=== PATIENT | female | born 2000 | race Two or more races ===

== ENCOUNTER 2025-05-07 02:07 | Emergency (ER) | payer BC ==
[~2025-05-07] VITALS: Ht 162.6 cm; Wt 54.4 kg
[2025-05-07] MEDS ORDERED: FAMOTIDINE/PF 20 MG/2 ML VIAL IV PUSH STA (02:34)
[2025-05-07] MEDS ORDERED: PROMETHAZINE HCL 50 MG/ML AMPUL IM STA (02:34)
[2025-05-07] MEDS ORDERED: FAMOTIDINE/PF 20 MG/2 ML VIAL ONE (02:37)
[2025-05-07] MEDS ORDERED: PROMETHAZINE HCL 50 MG/ML AMPUL IM ONE (02:37)
[2025-05-07] MEDS ORDERED: DEXTROSE 5 % AND 0.9 % NACL 1,000 ML IV ONE (02:45)
[2025-05-07] MEDS ORDERED: ZOFRAN8 MG PO (05:54)
[2025-05-07] MEDS ORDERED: PEPCID40 MG PO (05:54)
== END 2025-05-07 06:03 ==
LOC: ER 02:39
DX: F10.929 Alcohol use, unspecified with intoxication, unspecified (principal)